=== PATIENT | male | born 1985 | race Caucasian/White ===

== ENCOUNTER 2016-08-13 14:23 | Emergency (ER) | payer MEDICAID, OTHER ==
[2016-08-13 14:28] VITALS: RESP 20
[2016-08-13] MEDS ORDERED: KETOROLAC TROMETHAMINE 30 MG/ML SOL IV ONE (14:46)
[2016-08-13] MEDS ORDERED: APAP/HYDROCODONE 325/5 TAB PO ONE (14:46)
[2016-08-13] MEDS ORDERED: SODIUM CHLORIDE 0.9% FLUSH 10 ML SOL IV PRN (14:47)
[2016-08-13] MEDS ORDERED: KETOROLAC TROMETHAMINE 30 MG/ML SOL ONE (14:48)
[2016-08-13] MEDS ORDERED: APAP/HYDROCODONE 325/5 TAB ONE (14:48)
[2016-08-13] MEDS ORDERED: LIDOCAINE HCL 2% MPF SOL SC ONE ×2 (15:22→15:40)
[2016-08-13] MEDS ORDERED: LIDOCAINE HCL 2% MPF SOL ONE ×2 (15:24→15:40)
[2016-08-13 15:59] VITALS: BP 157/86; PULSE 90; TEMP 98.5; O2SAT 99
== END 2016-08-13 16:20 | disposition home or self-care (01) | DRG 552 ==
LOC: ED 14:23
DX: M54.5 Low back pain (principal)
CPT/HCPCS: 99283; J1885